=== PATIENT | female | born 1970 | race American Indian/Alaskan Native ===

== ENCOUNTER 2016-07-15 23:44 | Emergency (ER) | payer SELFPAY ==
[2016-07-16 00:13] VITALS: BP 123/82
[2016-07-16] MEDS ORDERED: TORADOL IM ONE (02:27)
[2016-07-16] MEDS ORDERED: FLEXERIL PO ONE (02:27)
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
[2016-07-16] MEDS ORDERED: DELTASONE PO ONE (02:38)
[2016-07-16] MEDS ORDERED: MOTRIN PO ONE ×2 (02:56→02:58)
== END 2016-07-16 03:54 | disposition home or self-care (01) ==
LOC: ED 23:44
DX: S39.012A Strain of muscle, fascia and tendon of lower back, initial encounter (principal); W22.8XXA Striking against or struck by other objects, initial encounter; Y93.01 Activity, walking, marching and hiking; Y92.89 Other specified places as the place of occurrence of the external cause; Y99.8 Other external cause status
CPT/HCPCS: 99282; J1885; J7512

== ENCOUNTER 2017-04-14 22:03 | Emergency (ER) | payer OTHER ==
[2017-04-14] MEDS ORDERED: TORADOL ONE (22:38)
[2017-04-14] MEDS ORDERED: TORADOL IM ONE (22:43)
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
[2017-04-14] MEDS ORDERED: MOTRIN ONE (23:10)
[2017-04-14] MEDS ORDERED: MOTRIN PO ONE (23:12)
[2017-04-14] MEDS ORDERED: NORCO 5/325 PO ONE (23:42)
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
--- NOTE | 2017-04-15 00:30 | XRay Report ---
FINAL REPORT PROCEDURE: XR FOOT 2V LT TECHNIQUE: LEFT foot radiographs, AP and lateral views. HISTORY: foot pain COMPARISON: No prior studies are available for comparison. FINDINGS: Fracture (s) and/or Dislocation(s): None . Alignment: Normal. Joint space(s): Normal. Soft tissues: Normal. Bone mineralization: Normal. Foreign bodies: None. Calcaneal spurring: None. IMPRESSION: No evidence of an acute fracture or dislocation
--- NOTE | 2017-04-15 00:31 | XRay Report ---
FINAL REPORT PROCEDURE: XR ANKLE 2V LT TECHNIQUE: LEFT ankle radiographs, AP and lateral views. HISTORY: left ankle pain COMPARISON: No prior studies are available for comparison. FINDINGS: Fracture (s) and/or Dislocation(s): None. Alignment: Normal. Joint space(s): Normal. Soft tissues: Normal. Bone mineralization: Normal. Foreign bodies: Normal. Calcaneal spurring: Normal. IMPRESSION: No acute fracture or dislocation.
[2017-04-15 01:38] VITALS: BP 114/79
== END 2017-04-15 01:38 | disposition home or self-care (01) ==
LOC: ED 22:03
DX: S82.831A Other fracture of upper and lower end of right fibula, initial encounter for closed fracture (principal); V09.9XXA Pedestrian injured in unspecified transport accident, initial encounter; Y93.89 Activity, other specified; Y92.89 Other specified places as the place of occurrence of the external cause; Y99.8 Other external cause status
CPT/HCPCS: 29515; 73600; 73620; 99284; J1885